=== PATIENT | male | born 1955 | race American Indian/Alaskan Native ===

== ENCOUNTER 2025-06-01 10:18 | Emergency (ER) | payer OTHER ==
[~2025-06-01] VITALS: Ht 177.8 cm; Wt 70.0 kg
[2025-06-01] MEDS ORDERED: FentaNYL Citrate 50 MCG/ML 2 ML Injection ONE (10:26)
[2025-06-01] MEDS ORDERED: NS 1,000 ML IV ONE ×2 (10:35→11:39)
[2025-06-01] MEDS ORDERED: Ketamine HCL 1,000 MG in NS 100 ML IV SCH (10:45)
[2025-06-01] MEDS ORDERED: Ketamine HCL 100 MG in NS 100 ML IV SCH (10:45)
[2025-06-01 10:59] LABS: BASOPHILS ABSOLUTE AUTO 0.07 K/mm3 (0.00-0.23); BASOPHILS PERCENT AUTO 1 % (0-2); EOSINOPHILS ABSOLUTE AUTO 0.18 K/mm3 (0.00-0.68); EOSINOPHILS PERCENT AUTO 2 % (0-6); Hematocrit 41.3 % (37.0-53.0); Hemoglobin 14.0 g/dL (13.5-17.5); IMMATURE GRAN ABSOLUTE AUTO 0.12 K/mm3 (0.00-0.10); IMMATURE GRAN PERCENT AUTO 2 % (0-1); LYMPHOCYTES ABSOLUTE AUTO 3.97 K/mm3 (0.84-5.20); LYMPHOCYTES PERCENT AUTO 50 % (21-46); MONOCYTES ABSOLUTE AUTO 0.29 K/mm3 (0.16-1.47); MONOCYTES PERCENT AUTO 4 % (4-13); Mean Corpuscular HGB Conc 33.9 g/dL (31.5-36.5); Mean Corpuscular Volume 89 fL (80-100); NEUTROPHILS ABSOLUTE AUTO 3.26 K/mm3 (1.96-9.15); NEUTROPHILS PERCENT AUTO 41 % (41-73); NRBC ABSOLUTE 0.00 K/mm3 (0.00-0.02); NRBC Auto 0.0 /100 WBC (0.0-0.2); Platelet Count 246 K/mm3 (150-400); RDW Coefficient Variation 14.4 % (11.7-14.2); RDW Standard Deviation 47.3 fL (35.1-46.3)
[2025-06-01 11:18] LABS: Alanine Aminotransfer (ALT/SGP 495.0 U/L (12-78); Albumin, Blood 3.5 g/dL (3.4-5.0); Albumin/Globulin Ratio 1.2 (0.8-1.8); Anion Gap 8.0 mmol/L (3-11); Aspartate Aminotrans (AST/SGOT 526.0 U/L (12-37); Bilirubin, Total 0.3 mg/dL (0.1-1.0); Blood Urea Nitrogen 32.0 mg/dL (8-24); CO2, Blood 24.0 mmol/L (21-32); Calcium, Blood 8.4 mg/dL (8.5-10.1); Chloride, Blood 107.0 mmol/L (98-108); Creatinine, Blood 1.63 mg/dL (0.60-1.20); Globulin, Blood 2.8 g/dL (2.2-4.0); Glucose, Blood 204.0 mg/dL (70-99); Potassium, Blood 3.5 mmol/L (3.5-5.5); Sodium, Blood 135.0 mmol/L (136-145); Total Protein, Blood 6.3 g/dL (6.4-8.2)
[2025-06-01 11:19] LABS: Prothrombin Time Results 11.0 Sec (9.7-11.5)
[2025-06-01] MEDS ORDERED: Labetalol HCL 5 MG/ML 4ML Injection (Single Dose) IV ONE (11:30)
[2025-06-01] MEDS ORDERED: NiCARdipine HCL 50 MG in NS 250 ML IV SCH (11:30)
[2025-06-01] MEDS ORDERED: Tranexamic Acid 100 ML IV ONE ×2 (11:50→11:55)
[2025-06-01] MEDS ORDERED: Rocuronium Bromide 10 MG/ML 5ML Injection IV ONE (21:03)
[2025-06-01] MEDS ORDERED: Ketamine HCl 100 MG / ML 5ML Vial IM ONE (21:03)
[2025-06-01] MEDS ORDERED: Phenylephrine HCl 100 MCG/ML-NS 10MLSYR (1MG/10ML) IV ONE (21:03)
[2025-06-01] MEDS ORDERED: Propofol 10mg/ml 20 ml Vial (Procedural) IV ONE (21:03)
== END 2025-06-01 12:45 | disposition short-term general hospital (02) ==
LOC: ER 10:18 → EDBD 10:18 → ER 12:45
PROVIDERS: Student in an Organized Health Care Education/Training Program
DX: S06.6XAA Traumatic subarachnoid hemorrhage with loss of consciousness status unknown, initial encounter (principal); S27.0XXA Traumatic pneumothorax, initial encounter; S22.42XA Multiple fractures of ribs, left side, initial encounter for closed fracture; S22.31XA Fracture of one rib, right side, initial encounter for closed fracture; S42.032A Displaced fracture of lateral end of left clavicle, initial encounter for closed fracture; S36.113A Laceration of liver, unspecified degree, initial encounter; V89.2XXA Person injured in unspecified motor-vehicle accident, traffic, initial encounter
CPT/HCPCS: 31500; 32551; 36430; 51702; 70450; 71045; 71260; 72125; 74177; 80053; 83690; 85025; 85610; 86850; 86900; 86901; 86920; 90471; 90715; 94002; 96374-59; 96375-59; 99291-25; 99292; G0390; J1953; J2371; J2704; J3010; J7030; J7050; P9016; Q9967